=== PATIENT | female | born 1995 | race African-American/Black ===

== ENCOUNTER 2017-08-14 22:28 | Emergency (ER) | payer MEDICAID ==
[~2017-08-14] VITALS: Ht 154.9 cm; Wt 92.0 kg
[2017-08-14 22:28] VITALS: BP 123/61; PULSE 72; RESP 16; TEMP 98.9; O2SAT 99
[~2017-08-14 22:28] MED LIST: CORTIS10A LEFT EAR; NEXP68IM
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
[2017-08-14] MEDS ORDERED: DICL75TA PO (22:53)
[2017-08-14] MEDS ORDERED: NAPROXEN 500 MG TAB PO ONE (23:00)
--- NOTE | 2017-08-14 23:08 | RADRPT ---
EXAM DATE/TIME: 08/14/2017 22:56 [facility] COMPARISON: No previous studies available for comparison. INDICATIONS : Sacrum and coccyx pain, fell MEDICAL HISTORY : SURGICAL HISTORY : None. ENCOUNTER: Initial ACUITY: 1 day PAIN SCORE: 10/10 LOCATION: Sacrum and coccyx FINDINGS: There is widening of the space between the C1 and C2 elements of the coccyx to 4 mm. There is also s light posterior displacement of the C2 elements in relation to C1. The sacral segments appear intact. CONCLUSION: Widening of the space between the C1 and C2 coccygeal elements which can be posttraumatic. Lincoln Deng MD on August 14, 2017 at 23:04 Board Certified Radiologist. This report was verified electronically.
== END 2017-08-14 23:28 | disposition home or self-care (01) ==
LOC: NEPD 22:28
DX: S30.0XXA Contusion of lower back and pelvis, initial encounter (principal); Y04.2XXA Assault by strike against or bumped into by another person, initial encounter
CPT/HCPCS: 72220; 84703; 99283